=== PATIENT | male | born 1995 | race Caucasian/White ===

== ENCOUNTER 2019-08-15 17:35 | Emergency (ER) | payer OTHER ==
[~2019-08-15] VITALS: Ht 185.4 cm; Wt 90.9 kg
[2019-08-15 17:39] VITALS: TEMP 97.9
[2019-08-15 21:05] VITALS: BP 124/71; PULSE 51
== END 2019-08-15 21:05 | disposition home or self-care (01) ==
LOC: COL.ER 17:35
DX: S63.094A Other dislocation of right wrist and hand, initial encounter (principal); X50.0XXA Overexertion from strenuous movement or load, initial encounter
CPT/HCPCS: J2704; Q4021